=== PATIENT | male | born 1990 | race Caucasian/White ===

== ENCOUNTER 2019-10-09 14:42 | Day surgery (SDC) | payer MEDICAID ==
[2019-10-09] MEDS ORDERED: LIDOCAINE 1%-EPI 1:100000 20 ML MDV SUBQ STA (14:56)
[2019-10-09] MEDS ORDERED: AMOX/CLAV 875 MG/125 MG TABLET PO STA (14:57)
[2019-10-09] MEDS ORDERED: TETANUS/DIPHTHERIA/PERTUSSIS 0.5 ML SYRINGE IM ONE (14:57)
[2019-10-09] MEDS ORDERED: MORPHINE 2 MG/ML CARPUJECT IM STA (15:11)
[2019-10-09] MEDS ORDERED: ceFAZolin 1 GM in SODIUM CHLORIDE 0.9% MINIBAG 100 ML IV STA (15:43)
--- NOTE | 2019-10-09 15:50 | ED Physician Documentation ---
PD HPI UPPER EXT INJURY - Stated complaint Stated Complaint: DOG BITE LT CALF - Chief complaint Chief Complaint: Laceration - History obtained from History obtained from: Patient, Family - History of Present Illness Location: Hand (right), Other (left calf) Type of injury: Other (dog bite) Where injury occurred: [place] Timing - onset: Today Timing - duration: Hours (1) Timing - details: Abrupt onset Pain level max: 9 Pain level now: 9 Improved by: Rest, Ice, Immobilization Worsened by: Moving, Palpating Associated symptoms: No: Weakness, Numbness, Tingling, Swelling Contributing factors: No: Anticoagulated Similar symptoms before: Has not had sx before Recently seen: Not recently seen Review of Systems Ten Systems: 10 systems reviewed and negative Constitutional: denies: Fever, Chills Cardiac: denies: Chest pain / pressure, Palpitations Respiratory: denies: Dyspnea, Cough GI: denies: Abdominal Pain, Nausea, Vomiting, Diarrhea : denies: Dysuria Skin: denies: Rash Musculoskeletal: denies: Neck pain, Back pain Neurologic: denies: Headache PD PAST MEDICAL HISTORY - Past Medical History Past Medical History: Yes Psych: Depression - Past Surgical History Past Surgical History: Yes Ortho: Spine surgery - Present Medications Home Medications: Ambulatory Orders Medication Instructions Recorded Confirmed Amox/Clav 875/125 [Augmentin] 1 each PO Q12H #20 tablet 10/09/19 HYDROcod/ACETAM 5/325 [[place] 5/325] 1 - 2 ea PO Q6H PRN #14 tablet 10/09/19 Venlafaxine ER [Effexor ER] 75 mg PO DAILY 10/09/19 10/09/19 lamoTRIgine [Lamictal] 150 mg PO DAILY 10/09/19 10/09/19 - Allergies Allergies/Adverse Reactions: Allergies Allergy/AdvReac Type Severity Reaction Status Date / Time meloxicam Allergy Nausea Verified 10/09/19 14:48 - Social History Does the pt smoke?: No Smoking Status: Never smoker PD ED PE NORMAL - Vitals Vital signs reviewed: Yes - General General: Alert and oriented X 3, No acute distress - HEENT HEENT: Moist mucous membranes - Neck Neck: Supple, no meningeal sign - Cardiac Cardiac: RRR - Respiratory Respiratory: No respiratory distress, Clear bilaterally - Abdomen Abdomen: Soft, Non tender, Non distended - Derm Derm: Warm and dry - Extremities Extremities: Other (laceration, pain swelling to the R hand. puncture on the palm. laceration to the dorsum. NVI. ) - Neuro Neuro: Alert and oriented X 3 PD ED PE EXPANDED - Extremities MELLISA LE visual: 1 - laceration (5cm, into fat) 2 - laceration (2 cm, into fat.) Results - Vitals Vitals: Vital Signs - 24 hr 10/09/19 10/09/19 10/09/19 14:48 15:09 17:23 Temperature 36.5 C 36.5 C Heart Rate 67 67 68 Respiratory 20 20 Rate Blood Pressure 111/71 111/71 110/77 O2 Saturation 99 99 99 Oxygen O2 Source Room air - Labs Labs: Laboratory Tests 10/09/19 10/09/19 17:01 17:01 WBC 19.7 H RBC 5.13 Hgb 16.0 Hct 48.8 MCV 95.1 H MCH 31.2 H MCHC 32.8 RDW 11.8 L Plt Count 295 MPV 9.7 Neut # (Auto) 17.5 H Lymph # (Auto) 1.2 L [place] # (Auto) 0.9 Eos # (Auto) 0.0 Baso # (Auto) 0.1 Absolute Nucleated RBC 0.00 Nucleated RBC % 0.0 Sodium 139 Potassium 3.2 L Chloride 102 Carbon Dioxide 22 Anion Gap 15.0 H BUN 11 Creatinine 0.8 Estimated GFR (MDRD) 114 Glucose 86 Calcium 10.2 - Rads (name of study) L tib fib xray Radiology: Prelim report reviewed, EMP read contemporaneously, See rad report (Soft tissue laceration. No evidence acute bony abnormality of the left tibia and fibula. ) R hand xray Radiology: Prelim report reviewed, EMP read contemporaneously, See rad report (Comminuted, displaced distal shaft fracture of the fifth metacarpal with overriding. Soft tissue laceration) Procedures - Laceration (location) L leg Length in cm: 5 Wound type: Linear, Into subcut fat, Clean Neurovascular status: Sensory intact, Motor intact, Vascular intact Anesthesia: Lidocaine 1% with epi Wound Preparation: Irrigated copiously NS, Wound explored, To the base Skin layer closure: Nylon, Interrupted, Size #-0 - enter number, Sutures - enter # (5) Other: Patient tolerated well, No complications, Neurovascular intact, Tetanus booster given (tdap) Complexity: Simple L leg 2 Length in cm: 2 Wound type: Linear, Into subcut fat, Clean Neurovascular status: Sensory intact, Motor intact, Vascular intact Anesthesia: Lidocaine 1% with epi Wound Preparation: Irrigated copiously NS, Wound explored, To the base Skin layer closure: Nylon, Interrupted, Size #-0 - enter number (4), Sutures - enter # (1) Other: Patient tolerated well, No complications, Neurovascular intact, Tetanus booster given Complexity: Simple PD MEDICAL DECISION MAKING - ED course Complexity details: reviewed results, re-evaluated patient, considered differential, d/w patient, d/w portrait consultant ED course: Patient with a dog bite to left lower extremity. Also dog bite to the right hand. The right hand has an underlying comminuted, displaced distal shaft fracture of the fifth metacarpal. This will need to be debrided in the operating room and repaired. Discussed the case with Dr. Oswald, orthopedics who will come evaluate the patient and take him to the OR. IV Ancef and oral A ugmentin were given. The leg lacerations were loosely approximated in the emergency department. Counseled regarding risk of infection and how to minimize scarring. The sutures will need to be removed in approximately 14 days with his doctor. This document was made in part using voice recognition software. While efforts are made to proofread this document, sound alike and grammatical errors may occur. Tdap given. Leg lacerations irrigated with 500ml of saline. Prescriptions were printed and given to his mother as well as a prepack of Vicodin as he was going to the operating room, pharmacies will be closed by the time the operation is complete. Departure - Departure Disposition: ED Transfer to [facility] Clinical Impression: Laceration Fracture of fifth metacarpal bone Qualifiers: Encounter type: initial encounter Fracture type: open Metacarpal location: shaft Fracture alignment: displaced Laterality: right Qualified Code(s): S62.326B - Displaced fracture of shaft of fifth metacarpal bone, right hand, initial encounter for open fracture Dog bite Qualifiers: Encounter type: initial encounter Qualified Code(s): W54.0XXA - Bitten by dog, initial encounter Condition: Stable
--- NOTE | 2019-10-09 15:52 | XRAY Report ---
PROCEDURE: Hand 3 View RT INDICATIONS: dog bite TECHNIQUE: 3 views of the hand(s) acquired. COMPARISON: None FINDINGS: Bones: Comminuted distal shaft fracture of the fifth metacarpal with overriding and displacement. No other fractures or dislocations. No suspicious bony lesions. Soft tissues: No suspicious soft tissue calcifications. Soft tissue laceration, medial aspect, at t he level of the base of the fifth metacarpal. IMPRESSION: Comminuted, displaced distal shaft fracture of the fifth metacarpal with overriding. Soft tissue lace ration. Reviewed by: Dewey Braga MD on 10/09/2019 3:51 PM PDT Approved by: Dewey Braga MD on 10/09/2019 3:51 PM PDT Station ID: [id number]
--- NOTE | 2019-10-09 15:54 | XRAY Report ---
PROCEDURE: Tib/Fib LT INDICATIONS: dog bite TECHNIQUE: 2 views of the tibia and fibula were acquired. COMPARISON: None FINDINGS: Bones: No fractures or dislocations. No suspicious bony lesions. Soft tissues: No suspicious soft tissue calcifications or masses. Soft tissue laceration, at the le jewell of the proximal shaft of the fibula, involving the lateral soft tissues. IMPRESSION: Soft tissue laceration. No evidence acute bony abnormality of the left tibia and fibula. Reviewed by: Dewey Braga MD on 10/09/2019 3:53 PM PDT Approved by: Dewey Braga MD on 10/09/2019 3:53 PM PDT Station ID: [id number]
--- NOTE | 2019-10-09 16:33 | ANESTHESIA ---
Pre-Anesthesia VS, & Labs - Diagnosis Dog Bite right hand, fractured 5th metacarpal - Procedure right hand Wound washout and debridement and closed reduction of 5th metacarpal Vital Signs: Temp Pulse Resp BP Pulse Ox 36.5 C 67 20 111/71 99 10/09/19 15:09 10/09/19 15:09 10/09/19 15:09 10/09/19 15:09 10/09/19 15:09 Height 5 ft 9 in Weight (kg) 79.379 kg Body Mass Index 25.8 - NPO Other (Frapp at noon) Home Medications and Allergies Home Medications: Ambulatory Orders Venlafaxine ER [Effexor ER] 75 mg PO DAILY 10/09/19 lamoTRIgine [Lamictal] 150 mg PO DAILY 10/09/19 Venlafaxine ER [Effexor ER] 75 mg PO DAILY 10/09/19 lamoTRIgine [Lamictal] 150 mg PO DAILY 10/09/19 Allergies/Adverse Reactions: Allergies Allergy/AdvReac Type Severity Reaction Status Date / Time meloxicam Allergy Nausea Verified 10/09/19 14:48 Anes History & Medical History - Anesthetic History Anesthesia Complications: reports: No previous complications - Medical History Cardiovascular: reports: None (`) Pulmonary: reports: None Gastrointestinal: reports: None Urinary: reports: None Neuro: reports: None Musculoskeletal: reports: None Endocrine/Autoimmune: reports: None Blood Disorders: reports: None Skin: reports: None Smoking Status: Never smoker Psychosocial: reports: Depression (bipolar), Cannabis (daily use) - Surgical History Eyes Ears Nose Throat (EENT): Tonsil/Adenoidectomy Orthopedic: Spine surgery (L5-S1 herniated disk) Exam General: Alert, Oriented x3, Cooperative, No acute distress Dental: WNL Mouth Openin Fingerbreadth Neck Mobility: Normal Mallampati classification: II Thyromental Distance: greater than 6 cm Respiratory: Lungs clear, Normal breath sounds, No respiratory distress, No accessory muscle use Cardiovascular: Regular rate, Normal S1, Normal S2, No murmurs Mental/Cognitive Status: Alert/Oriented X3, Normal for patient Plan Anesthesia Type: General (vs regional), Interscalene Block (right) Consent for Procedure(s) Verified and Reviewed: Yes Code Status: Attempt Resuscitation ASA classification: 2-Mild systemic disease Is this case an emergency?: Yes
[2019-10-09] MEDS ORDERED: LACTATED RINGERS 1,000 ML IV STA (16:42)
[2019-10-09] MEDS ORDERED: LIDOCAINE-MPF 2% 5 ML VIAL IM ONE (17:01)
[2019-10-09] MEDS ORDERED: MIDAZOLAM 2 MG/2 ML VIAL IVP ONE (17:01)
[2019-10-09] MEDS ORDERED: DEXAMETHASONE 4 MG/ML VIAL IVP ONE (17:01)
[2019-10-09] MEDS ORDERED: ROPIVACAINE 0.5% PF 20 ML AMPULE IU ONE (17:01)
[2019-10-09] MEDS ORDERED: fentaNYL 100 MCG/2 ML VIAL IVP ONE (17:01)
[2019-10-09] MEDS ORDERED: PROPOFOL 200 MG/20 ML VIAL IVP ONE (17:01)
[2019-10-09 17:06] LABS: BASOPHILS # (AUTO) 0.1 10^3/uL (0.0-0.1); BASOPHILS % (AUTO) 0.4 %; EOSINOPHILS % (AUTO) 0.1 %; LYMPHOCYTES # (AUTO) 1.2 10^3/uL (1.5-3.5); MEAN CORPUSCULAR HEMOGLOBIN 31.2 pg (27.0-31.0); MEAN CORPUSCULAR HGB CONC 32.8 g/dL (32.0-36.0); MEAN CORPUSCULAR VOLUME 95.1 fL (80.0-94.0); MEAN PLATELET VOLUME 9.7 fL (7.4-11.4); MONOCYTES # (AUTO) 0.9 10^3/uL (0.0-1.0); MONOCYTES % (AUTO) 4.3 %; NEUTROPHILS # (AUTO) 17.5 10^3/uL (1.5-6.6); NEUTROPHILS % (AUTO) 88.5 %; PLT - PLATELET COUNT 295 10^3/uL (130-450); RED BLOOD COUNT 5.13 10^6/uL (4.70-6.10); RED CELL DISTRIBUTION WIDTH 11.8 % (12.0-15.0); WHITE BLOOD COUNT 19.7 x10^3/uL (4.8-10.8)
[2019-10-09] MEDS ORDERED: HYDROcod/ACET 5/325 Prepack 4 PO STA (17:07)
[2019-10-09] MEDS ORDERED: BUPIVACAINE 0.25% PF 30 ML VIAL ONE (17:16)
[2019-10-09] MEDS ORDERED: LIDOCAINE 1%-EPI 1:100000 20 ML MDV ONE (17:16)
[2019-10-09 17:18] LABS: CALCIUM 10.2 mg/dL (8.5-10.3); CREATININE 0.8 mg/dL (0.6-1.2)
[2019-10-09] MEDS ORDERED: BACITRACIN 50,000 UNIT VIAL ONE (17:23)
--- NOTE | 2019-10-09 17:25 | CONSULTATION NOTE ---
Chief Complaint - Chief Complaint Chief Complaint: Right hand open 5th metacarpal fracture dog bite History of Present Illness - Admitted From Admitted From:: Emergency room - History of Present Illness HPI Comment/Other: This 29-year-old male was visiting from [place] and was attacked by a yellow Labrador retriever suffering injuries to his right hand and his left leg. He is otherwise healthy. He denies any other serious injuries presently he is not complaining of anything except for right hand pain and left leg pain. History - Past Medical History Cardiovascular: reports: None (`) Respiratory: reports: None Neuro: reports: None Endocrine/Autoimmune: reports: None GI: reports: None AQUATIC PHYSIOTHERAPIST: reports: None : reports: None HEENT: reports: None Psych: reports: Depression Musculoskeletal: reports: None Derm: reports: None MRSA Hx?: No - Past Surgical History Ortho: reports: Spine surgery HEENT: reports: Tonsil/Adenoidectomy Meds/Allgy - Home Medications Home Medications: Ambulatory Orders Medication Instructions Recorded Confirmed Amox/Clav 875/125 [Augmentin] 1 each PO Q12H #20 tablet 10/09/19 HYDROcod/ACETAM 5/325 [[place] 5/325] 1 - 2 ea PO Q6H PRN #14 tablet 10/09/19 Venlafaxine ER [Effexor ER] 75 mg PO DAILY 10/09/19 10/09/19 lamoTRIgine [Lamictal] 150 mg PO DAILY 10/09/19 10/09/19 - Allergies Allergies/Adverse Reactions: Allergies Allergy/AdvReac Type Severity Reaction Status Date / Time meloxicam Allergy Nausea Verified 10/09/19 14:48 Exam - Vital Signs Vital Signs: Vital Signs x48h Temp Pulse Resp BP Pulse Ox 10/09/19 15:09 36.5 C 67 20 111/71 99 10/09/19 14:48 36.5 C 67 20 111/71 99 - Physical Exam General Appearance: positive: No acute distress Eyes Bilateral: positive: Normal inspection ENT: positive: ENT inspection nml Neck: positive: Nml inspection Respiratory: positive: Chest non-tender Cardiovascular: positive: Regular rate & rhythm Peripheral Pulses: positive: 2+ Abdomen: positive: Non-tender Rectal: positive: Other Back: positive: Nml inspection Skin: positive: Warm, Laceration (cm) Extremities: positive: Other (Specific examination of his right hand reveals a oblique laceration over the dorsum of the fourth and fifth metacarpals. There is some clot within the wound. He does have dorsal sensation over the fourth and fifth metacarpals as well as his other metacarpals.) Neurologic/Psychiatric: positive: Oriented x3 Conclusion/Plan - Diagnosis Diagnosis: Open fifth metacarpal fracture and laceration right hand - Plan Plan: Patient will be taken to the operating room for an extensive debridement of his fifth metacarpal open fracture and closure of the wounds with possible repair of the extensor tendons. Risks and benefits were described to both he and his mother. This includes possible infection in the future. He will be closed loosely with follow-up in his hometown of [place]. - Lab Results Fish Bones: 10/09/19 17:01 10/09/19 17:01
[2019-10-09] MEDS ORDERED: fentaNYL 100 MCG/2 ML VIAL IVP PRN (18:22)
[2019-10-09] MEDS ORDERED: NALOXONE 0.4 MG/ML VIAL IVP PRN (18:22)
[2019-10-09] MEDS ORDERED: ONDANSETRON 4 MG/2 ML VIAL IVP PRN (18:22)
[2019-10-09] MEDS ORDERED: MORPHINE 2 MG/ML CARPUJECT IVP PRN (18:22)
[2019-10-09] MEDS ORDERED: HYDROmorphone 0.5 MG/0.5 ML SYRINGE IVP PRN (18:22)
[2019-10-09] MEDS ORDERED: ATROPINE ABBOJECT 1 MG/10 ML SYRINGE IVP PRN (18:22)
[2019-10-09] MEDS ORDERED: BACITRACIN 50,000 UNIT VIAL IM ONE (18:26)
[2019-10-09] MEDS ORDERED: LACTATED RINGERS 1,000 ML IV ONE (18:37)
--- NOTE | 2019-10-09 18:40 | OPERATIVE REPORT ---
Operative Report - General Procedure Date: 10/09/19 Planned Procedure: Open debridement of severe dogbite/open 5th metacarpal fracture right hand Pre-Op Diagnosis: open 5th metacarpal fracture Procedure Performed: Debridement extensive, right hand and open I&D right 5th metacarpal fracture Post Op Diagnosis: same - Procedure Note Primary Surgeon: Darek Anesthesia Technique: Moderate sedation, Regional block Indications: Bitten by dog several hours ago right hand and left leg - Other Other Information/Narrative: . Procedure This patient was taken to the operating room after being evaluated in the emergency room. An informed consent was obtained for irrigation and debridement of an open fifth metacarpal fracture and exploration of the wounds. If there was an obvious extensor tendon injury the plan was to do a primary repair. The patient was given an axillary nerve block and a timeout was done. He was then prepped and draped in usual sterile fashion in his right upper extremity. After initially evaluating him it was noted that he had proximally on the dorsum of th e hand a 2 cm oblique superficial laceration. About 2 cm distal to that he had a 3 cm oblique wound which was deep with exposed interosseous muscle but no evidence of exposed tendon. There was also a 1 cm longitudinal laceration between the fourth and fifth metacarpals distally. There were also multiple multiple punctate wounds. The most important wound was actually on the volar surface of the fifth digit. It was volar and radial and deep. It appeared that the radial digital neurovascular bundle had not been compromised although it was difficult to assess the nerve. Very clearly we could see the FDS and FDP were intact. We then used irrigation using an Asepto syringe and some low-volume pulsatile lavage to irrigate the wound. After this was done we closed the wound lightly with 2-0 nylon and 3-0 nylon. We then did a reduction of the fifth metacarpal placing him in a derotation position intrinsic plus with 60 degrees of flexion at the MCP joint and sterile dressings were done with Xeroform and a splint. He was instructed to follow-up with a hand surgeon in the next 72 hours or he was also instructed to follow-up with an emergency room if he has any fever sweats or chills. This was discussed with the patient preoperatively and with his mother postoperatively. It is still possible that he has a radial sided volar digital nerve laceration and this should be carefully checked.
--- NOTE | 2019-10-09 18:44 | ANESTHESIA POST OP EVALUATION ---
Anesthesia Post Eval - Post Anesthesia Eval Vitals: Last Vital Signs Temp 36.9 C 10/09/19 18:40 Pulse 63 10/09/19 18:40 Resp 29 H 10/09/19 18:40 BP 118/70 10/09/19 18:40 Pulse Ox 100 10/09/19 18:40 CV Function Including HR & BP: positive: Stable Pain Control: positive: Satisfactory Nausea & Vomiting: positive: Negative Mental Status: positive: Baseline Respiratory Status: Airway Patent Hydration Status: Satisfactory Anesthesia Complications: positive: None
[2019-10-09] MEDS ORDERED: LACTATED RINGERS 1,000 ML IV SCH (19:00)
[2019-10-09 20:25] VITALS: BP 131/70
== END 2019-10-09 20:31 | disposition home or self-care (01) ==
LOC: ED 14:42 → SDS 17:00 → MS2 19:11 → SDS 20:31
PROVIDERS: ATTEND Orthopaedic Surgery
DX: S62.326B Displaced fracture of shaft of fifth metacarpal bone, right hand, initial encounter for open fracture (principal); S61.411A Laceration without foreign body of right hand, initial encounter; S81.811A Laceration without foreign body, right lower leg, initial encounter; W54.0XXA Bitten by dog, initial encounter; Y92.830 Public park as the place of occurrence of the external cause
CPT/HCPCS: 11012; 11043; 12002; 26605; 36415; 73130; 73590; 80048; 85025; 90471; 90715; 96365; 96372; 99285; A9270; J7120